=== PATIENT | female | born 1970 | race Caucasian/White ===

== ENCOUNTER 2025-02-02 08:48 | Emergency (ER) | payer OTHER, SELFPAY ==
--- NOTE | 2025-02-02 08:49 | ED_ITS ---
HPI - Abdominal Pain General Chief Complaint: Abdominal Pain Stated Complaint: ABD PAIN Time Seen by Provider: 02/02/25 09:01 Source: patient, RN notes reviewed and old records reviewed Mode of arrival: ambulatory Limitations: no limitations History of Present Illness HPI narrative: 55-year-old female presents to the [facility] with complaints of right lower quadrant pain that started Tuesday, yesterday. Reports diarrhea and nausea. Denies any urinary symptoms. denies vomiting. Denies urinary symptoms. Onset (ago): day(s) (1) Related Data Home Medications ?Medication ?Instructions ?Recorded ?Confirmed ?Last Taken ?Type No Home Medications 02/02/25 02/02/25 Unknown History Allergies Allergy/AdvReac Type Severity Reaction Status Date / Time Penicillins Allergy Severe THROAT Verified 02/02/25 09:00 SWELLING, RASH hydrocodone Allergy Unknown SEVERE Verified 02/02/25 09:00 ITCHING Review of Systems Review of Systems: All systems reviewed & are unremarkable except as noted in HPI and below Constitutional: Constitutional: Reports no additional constitutional complaints ENT: Reports system reviewed and no additional complaints, except as documented Cardiovascular: Cardiovascular: Reports no additional cardiovascular complaints, Denies chest pain and Denies dyspnea Respiratory: Respiratory: Reports no additional respiratory complaints, Denies chest congestion, Denies cough and Denies dyspnea Gastrointestinal: Gastrointestinal: Reports as per HPI and Reports abdominal pain ( Right lower quadrant) Musculoskeletal: Musculoskeletal: Reports no additional musculoskeletal complaints Integumentary/Breasts: Skin/Breast: Reports system reviewed and no additional complaints, except as docu PMFSH Past Medical History Medical History Essential hypertension Surgical History Surgical History History of laparoscopic cholecystectomy H/O: hysterectomy Social History Social History Smoking status: Never smoker Second hand tobacco smoke exposure: No Alcohol intake: never Comments At the time of my signature, I reviewed and agree with the nursing past medical, surgical, social, and family history. There is no relevant family history pertinent to the patient complaint. Exam Const: General: cooperative, healthy appearing, comfortable, no acute distress, well developed, alert and well nourished Nutritional Appearance: well nourished Orientation/consciousness: patient oriented x3 Limitations: no limitations HENMT: Head: normal to inspection Eyes: General: appearance normal, both eyes and all related structures Alignment and Position: alignment normal Neck: Neck: normal visual inspection, full ROM, no lymphadenopathy and no meningeal signs Chest: Chest palpation & inspection: normal inspection of the chest Resp: Effort & Inspection: normal respiratory effort and able to speak in complete sentences Auscultation: clear to auscultation bilaterally, no crackles, no rales, no rhonchi and no wheezes Cardio: Rate: regular rate GI: GI Palp: Yes abdominal tenderness ( suprapubic, right lower quadrant), Yes Tenderness to palpation present (GI) and No Guarding due to palpation present (GI) : General: Yes no CVA tenderness Skin: General skin exam: normal color and no rashes or lesions noted Neuro: General: patient oriented x3, gait normal, moves all extremities and no meningeal signs Cognition (Neuro): normal cognition Speech: normal speech Gait exam (Neuro): Normal gait present Extrem: General: normal to inspection, full ROM, capillary refill normal and normal gait Psych: Appearance: grossly normal and well kempt Mental Status: mental status grossly normal Speech and movement: Normal speech and movement present and Clear speech present Affect: normal affect Attitude: cooperative Course Course Level of Care: Express Care Visit Vital Signs Vital signs: Vital Signs Temperature 97.7 F 02/02/25 09:02 Pulse Rate 95 02/02/25 09:02 Respiratory Rate 16 02/02/25 09:02 Blood Pressure 142/95 H 02/02/25 09:02 Pulse Oximetry 98 02/02/25 09:02 Temperature 97.7 F 02/02/25 09:02 Pulse Rate 95 02/02/25 09:02 Respiratory Rate 16 02/02/25 09:02 Blood Pressure 142/95 H 02/02/25 09:02 Pulse Oximetry 98 02/02/25 09:02 Reviewed Transfer Transfered to: [place] Transportation: Other ( POV) Transfer rationale: patient with right lower quadrant pain intermittent but increasing since yesterday. Sending to rule out appendicitis Accepting physician: Dr Oneal MDM - Abdominal Pain MDM Narrative Medical decision making narrative: patient sitting in exam room. Patient is nontoxic, vitals are stable except blood pressure mildly Ayaka elevated. Patient presents with right lower quadrant pain that has been increasing since yesterday. sending to the ER to rule out appy transfer instructions reviewed with patient go directly to the ER. Do not eat or drink until cleared by ER provider All questions have been answered, and the patient deny any further questions. Some parts of this dictation were generated by voice recognition software and may contain typographical and/or grammatical inaccuracies. Differential Diagnosis Differential diagnosis: Likely abdominal pain, acute appendicitis, calculus of kidney, constipation, diverticulitis, gastroenteritis, pancreatitis and small bowel obstruction Critical Care Time Critical Care Time Critical Care Time: No Discharge Plan Discharge Clinical Impression: Right lower quadrant abdominal pain Patient Disposition: Acute Care Hospital Condition: Stable Patient Language: Hebrew Prescriptions: No Action No Home Medications Follow-up/Referrals: Addy,Trey Mckeon MD [Primary Care Provider] -
[2025-02-02 09:02] VITALS: BP 142/95; PULSE 95; RESP 16; TEMP 36.5; O2SAT 98
== END 2025-02-02 09:28 | disposition short-term general hospital (02) ==
PROVIDERS: Emergency Provider Nurse Practitioner; PCP Internal Medicine
DX: R10.31 Right lower quadrant pain (principal); I10 Essential (primary) hypertension
CPT/HCPCS: 99212; G0463

== ENCOUNTER 2025-02-02 09:45 | Inpatient (IN) | payer OTHER, SELFPAY ==
--- NOTE | ~2025-02-02 | XR_ITS ---
EXAMINATION: XR chest 1V portable 02/02/2025 10:16 INDICATION: Right lower quadrant pain PROCEDURE: AP portable chest COMPARISON: 07/21/2016 FINDINGS: The lungs are clear. The cardiomediastinal silhouette is within normal limits. There are no pleural effusions. There is no pneumothorax suspected. IMPRESSION: 1: NO ACUTE CARDIOPULMONARY DISEASE. Reviewed, dictated and finalized at location A.
--- NOTE | ~2025-02-02 | CT_ITS ---
EXAMINATION: CT abdomen pelvis w con DATE: 02/02/2025 10:31 INDICATION: Right lower quadrant pain. TECHNIQUE: Computed tomography (CT) of the abdomen and pelvis was performed with 100 cc Omnipaque 350 intravenous contrast. The dose-length product was 603.70 mGy-cm. Automated exposure control and iter ative reconstruction technique were employed. COMPARISON: CT dated 06/20/2017. FINDINGS: Heart size normal. No significant pleural or pericardial effusion. There is dependent atele ctasis. Calcified granuloma right lower lobe. Fatty infiltration of the liver. Status post cholecyste ctomy. The spleen, pancreas, adrenal glands and kidneys are unremarkable. No significant vascular abn ormality. No lymphadenopathy. There is segmental thickening of the mid and distal small bowel extendi ng to the terminal ileum, suspicious for inflammatory process (i.e. Crohn's disease versus infection) . No obstruction. No lymphadenopathy. Trace free fluid in the pelvis. No free air. No acute osseous a bnormality. IMPRESSION: 1. Thickened ileum, suspicious for inflammatory bowel disease. Consider Crohn's disease and infection . Reviewed, dictated and finalized at location A. IMPRESSION: 1. Thickened ileum, suspicious for inflammatory bowel disease. Consider Crohn's disease and infection.
--- OUTSIDE RECORDS SUMMARY | 2025-02-02 09:47 | XMS_ITS | Clinical Summary ---
Author Organization [facility] [address] Address [address] [place] [address] Care Team Providers Care Atg Java Developer Name Role Phone No, Physician Primary Care Provider [phone] Allergies Active Allergy Reactions Criticality Noted Date Comments Hydrocodone-Acetaminophen Rash Medium 04/25/2019 Penicillins Anaphylaxis High 02/01/2019 Medications dilTIAZem CD/XR/XT (CARDIZEM CD,DILACOR XR) 120 mg 24 hr capsule Take 1 capsule (120 mg total) by mouth daily 30 capsule 11 04/25/2019 Active nitroglycerin (NITROSTAT) 0.[address] 1 tablet (0.4 mg total) under the tongue every 5 (five) minutes as needed for chest pain 25 tablet 11 06/18/2020 Active Active Problems No known active problems Surgical History Surgery Date Site/Laterality Comments HYSTERECTOMY CHOLECYSTECTOMY Medical History Medical History Date Comments Hypertension Gallstones Social History Tobacco Use Types Packs/Day Years Used Date Smoking Tobacco: Never Smokeless Tobacco: Never Alcohol Use Standard Drinks/Week Comments Never 0 (1 standard drink = 0.6 oz pur e alcohol) AUDIT-C Answer Date Recorded Frequency of Alcohol Consumption Never 04/25/2019 Average Number of Drinks Not on file 019 Frequency of Binge Drinking Not on file 04/06 Personal Safety Answer Date Recorded Getting School Help Needed Not on file 11/18 Comments Unknown Sex and Gender Information Value Date Recorded Sex Assigned at Not on file 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 Gender Identity Not on file Sexual Orientation Not on file Obstetrics History Last Filed Vital Signs Vital Sign Reading Time Taken Comments Blood Pressure 130/76 06/18/2020 1:03 PM CDT Pulse 77 06/18/2020 1:03 PM CDT Temperature - - Respiratory Rate - - Oxygen Saturation 99% 06/18/2020 1:03 PM CDT Inhaled Oxygen Concentration - - Weight 65.3 kg (144 lb) 06/18/2020 1:03 PM CDT Height 165.1 cm (5' 5) 06/18/2020 1:03 PM CDT Body Mass Index 23.96 06/18/2020 1:03 PM CDT Plan of Treatment Not on file Insurance Care Teams Atg Java Developer Relationship Specialty Start Date End Date No, Physician PCP - General 06/25/20
--- OUTSIDE RECORDS SUMMARY | 2025-02-02 09:47 | XMS_ITS | Referral Summary ---
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
[2025-02-02 10:01] VITALS: BP 156/102; PULSE 93; RESP 16; TEMP 36.7; O2SAT 100
--- NOTE | 2025-02-02 10:07 | ECG_ITS ---
Test Date: 2025-02-02 10:46:14 Measurements Intervals [place] Rate: 79 P: 44 WY: 155 QRS: 36 QRSD: 90 T: 28 QT: 398 QTc: 456 Interpretive Statements SINUS RHYTHM BASELINE ARTIFACT- I, II, III, AVR, AVL, V4-V5 NORMAL ECG No previous ECG available for comparison Electronically Signed On 02-03-2025 06:48:35 CDT by Renzo Cardona D.O.
--- NOTE | 2025-02-02 10:10 | ED_ITS ---
HPI - General Adult General Chief complaint: Abdominal Pain Stated complaint: Abd pain Time Seen by Provider: 02/02/25 10:03 History of Present Illness HPI narrative: This is a 55 female presenting ED with chief complaint of abdominal pain. Symptoms started yesterday morning. Pain was originally the middle/left side of her abdomen but is now migrated to the right quadrant. Associated with nausea without vomiting. She has had diarrhea during this time. No fevers chest pain difficulty breathing or urinary symptoms. She still has an appendix. Ovaries and uterus have been removed. Related Data Home Medications ?Medication ?Instructions ?Recorded ?Confirmed ?Last Taken ?Type No Home Medications 02/02/25 02/02/25 Unknown History Allergies Allergy/AdvReac Type Severity Reaction Status Date / Time Penicillins Allergy Severe THROAT Verified 02/02/25 09:46 SWELLING, RASH hydrocodone Allergy Unknown SEVERE Verified 02/02/25 09:46 ITCHING PMFSH Past Medical History Medical History Essential hypertension Surgical History Surgical History History of laparoscopic cholecystectomy H/O: hysterectomy Social History Social History Smoking status: Never smoker Second hand tobacco smoke exposure: No Alcohol intake: never Exam 2 Narrative: APPEARANCE: No apparent distress. Head: atraumatic. EYES: EOMI, NOSE: Atraumatic NECK: Trachea midline RESPIRATORY: No increased rate of breathing, CTAB CARDIOVASCULAR: RRR, ABDOMINAL: Tenderness to the right lower quadrant with voluntary guarding MUSCULOSKELETAl: No obvious deformities NEURO: Alert. Moving 4/4 extremities SKIN:: Warm, dry. Normal color PSYCHIATRIC: Normal affect Course Vital Signs Vital signs: Vital Signs Temperature 98.1 F 02/02/25 10:01 Pulse Rate 93 02/02/25 10:01 Respiratory Rate 16 02/02/25 10:01 Blood Pressure 156/102 H 02/02/25 10:01 Pulse Oximetry 100 02/02/25 10:01 Oxygen Delivery Room Air 02/02/25 10:01 Temperature 98.1 F 02/02/25 10:01 Pulse Rate 85 02/02/25 11:30 Respiratory Rate 16 02/02/25 11:30 Blood Pressure 152/98 H 02/02/25 11:30 Pulse Oximetry 99 02/02/25 11:30 Oxygen Delivery Room Air 02/02/25 10:01 Medical Decision Making [facility] Narrative Medical decision making narrative: -Course: 55-year-old female with no medical history presenting for right lower quadrant pain. CT abdomen pelvis showed inflammation of the terminal ileum and proximal colon which may be inflammatory or infectious in nature.. Presentation was consistent with appendicitis so I did speak with the radiologist to confirm there is no inflammation appendix. Patient does not have an elevated white count,fevers or bloody diarrhea so will hold off on antibiotics at this time. Laboratory studies within limits. Urine with 6-10 white blood cells of +1 leuk esterase. She has no urinary symptoms. Will await culture results. Despite fluid resuscitation and pain medication patient is still very uncomfortable. I am uncomfortable sending this patient home. She will be admitted the hospital for GI evaluation and pain control. -DDX includes but is not limited to: Appendicitis, inflammatory versus infectious colitis Vital Signs Vital Signs: Vital Signs Temperature 98.1 F 02/02/25 10:01 Pulse Rate 93 02/02/25 10:01 Respiratory Rate 16 02/02/25 10:01 Blood Pressure 156/102 H 02/02/25 10:01 Pulse Oximetry 100 02/02/25 10:01 Oxygen Delivery Room Air 02/02/25 10:01 Temperature 98.1 F 02/02/25 10:01 Pulse Rate 85 02/02/25 11:30 Respiratory Rate 16 02/02/25 11:30 Blood Pressure 152/98 H 02/02/25 11:30 Pulse Oximetry 99 02/02/25 11:30 Oxygen Delivery Room Air 02/02/25 10:01 Lab Data 02/02/25 10:14 02/02/25 10:14 Labs: Lab Results 02/02/25 02/02/25 Range/Units 10:14 10:59 WBC 5.8 (4.5-10.0) K/mm3 RBC 4.83 (4.2-5.4) M/mm3 Hgb 15.1 H (12.0-15.0) g/dL Hct 44.7 (37.0-47.0) % MCV 92.5 (80-100) fl MCH 31.3 (26-34) pg MCHC 33.8 (32-36) g/dl RDW 12.3 (11.5-14.5) % Plt Count 254 (150-375) k/mm3 MPV 9.7 (7.4-10.4) fl Immature Gran % (Auto) 0.2 (0-0.5) % Neut % (Auto) 68.1 (45.5-73.1) % Lymph % (Auto) 20.0 (18.3-44.2) % [place] % (Auto) 10.7 H (2.6-8.5) % Eos % (Auto) 0.7 (0-4.4) % Baso % (Auto) 0.3 (0.2-1.2) % Lymph # (Auto) 1.16 (0.9-3.2) K/mm3 [place] # (Auto) 0.6 (0.1-0.6) K/mm3 Eos # (Auto) 0.0 (0-0.3) K/mm3 Baso # (Auto) 0.0 (0.0-0.1) K/mm3 Abs Immat Gran (auto) 0.01 (0.00-0.031) K/mm3 Absolute Neuts (auto) 3.9 (1.3-6.7) K/mm3 Absolute Nucleated RBC 0.000 (0.0-0.012) K/mm3 Nucleated RBC % 0.0 (0.0-0.2) % Sodium 140 (137-145) mmol/L Potassium 3.7 (3.4-5.0) mmol/L Chloride 105 (98-107) mmol/L Carbon Dioxide 23 (22-30) mmol/L Anion Gap 12 (4-12) mmol/L BUN 12 (7-17) mg/dL Creatinine 0.71 (0.7-1.0) mg/dL Estim Creat Clear Calc 78 ml/min Estimated GFR > 60 (59 - ) Glucose 115 H (65-110) mg/dL Lactic Acid 1.2 (0.7-2.0) mmol/L Calcium 9.7 (8.4-10.2) mg/dL Total Bilirubin 0.9 (0.2-1.3) mg/dL AST 45 H (14-36) U/L ALT 39 H (6-35) U/L Alkaline Phosphatase 77 (38-126) U/L Total Protein 9.0 H (6.3-8.2) g/dL Albumin 5.1 (3.5-5.1) g/dL Lipase 70 (23-300) U/L Urine Color Dark yellow (Yellow) Urine Appearance Clear (Clear) Urine pH 5.5 (5.0-9.0) Ur Specific [place] 1.028 (1.001-1.035) Urine Protein 1+ H (Negative) mg/dL Urine Glucose (UA) Negative (Negative) mg/dL Urine Ketones Trace H (Negative) mg/dL Ur Blood (Man) 2+ H (Negative) Urine Nitrate Negative (Negative) Urine Bilirubin Negative (Negative) Urine Urobilinogen 1.0 (<2.0) mg/dL Add Ur Microanalysis Reviewed Leukocyte Esterase Rfl 1+ H (Negative) SIVAN/UL Urine RBC 11-20 H (0-2) /hpf Urine WBC 6-10 H (0-3) /hpf Ur Squamous Epith Cells Few (Few) /hpf Urine Bacteria None seen /hpf Urine Casts 0-2 Urine Mucus Present /lpf Discharge Plan Discharge Clinical Impression: Colitis Patient Disposition: Still a Patient Condition: Stable Instructions: Antibiotic Form Patient Language: [place] Prescriptions: No Action No Home Medications Follow-up/Referrals: Addy,Trey Mckeon MD [Primary Care Provider] -
--- OUTSIDE RECORDS SUMMARY | 2025-02-02 10:11 | XMS_ITS | Clinical Summary ---
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
--- OUTSIDE RECORDS SUMMARY | 2025-02-02 10:11 | XMS_ITS | Referral Summary ---
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
[2025-02-02 10:22] LABS: Basophils Percent Auto 0.3 % (0.2-1.2); Eosinophils Percent Auto 0.7 % (0-4.4); Hematocrit 44.7 % (37.0-47.0); Hemoglobin 15.1 g/dL (12.0-15.0); Immature Granulocyte Absolute 0.01 K/mm3 (0.00-0.031); Immature Granulocyte Percent A 0.2 % (0-0.5); Lymphocytes Absolute Auto 1.16 K/mm3 (0.9-3.2); Mean Corpuscular HGB Conc 33.8 g/dl (32-36); Mean Corpuscular Hemoglobin 31.3 pg (26-34); Mean Corpuscular Volume 92.5 fl (80-100); Mean Platelet Volume 9.7 fl (7.4-10.4); Monocytes Absolute Auto 0.6 K/mm3 (0.1-0.6); Monocytes Percent Auto 10.7 % (2.6-8.5); Neutrophils Absolute Auto 3.9 K/mm3 (1.3-6.7); Neutrophils Percent Auto 68.1 % (45.5-73.1); Platelet Count Result 254 k/mm3 (150-375); Red Blood Count 4.83 M/mm3 (4.2-5.4); Red Cell Distribution Width 12.3 % (11.5-14.5); White Blood Count 5.8 K/mm3 (4.5-10.0)
[2025-02-02] MEDS: HYDROmorphone HCL INJ (*CRX) 2 MG/ML VIAL 0.5 MG IV PUSH ×3 (10:28→21:09)
[2025-02-02 10:32] LABS: Alanine Aminotransferase 39 U/L (6-35); Albumin Level 5.1 g/dL (3.5-5.1); Alkaline Phosphatase 77 U/L (38-126); Anion Gap 12 mmol/L (4-12); Aspartate Amino Transferase 45 U/L (14-36); Bilirubin,Total 0.9 mg/dL (0.2-1.3); Blood Urea Nitrogen 12 mg/dL (7-17); Calcium 9.7 mg/dL (8.4-10.2); Carbon Dioxide 23 mmol/L (22-30); Chloride 105 mmol/L (98-107); Estimated CRCL calculation 78 ml/min; Estimated Glomerular Filt Rate > 60; Glucose 115 mg/dL (65-110); Lipase 70 U/L (23-300); Potassium 3.7 mmol/L (3.4-5.0); Sodium 140 mmol/L (137-145)
[2025-02-02] MEDS: SODIUM CHLORIDE 0.9% IV 1,000 ML 999 ML IV CONT ×2 (10:41)
[2025-02-02] MEDS: ONDANSETRON INJ 4 MG/2 ML VIAL IV PUSH ×2 (10:41→20:13)
[2025-02-02] MEDS: SODIUM CHLORIDE 0.9% IV 400 ML 999 ML IV CONT (10:41)
[2025-02-02 10:45] VITALS: BP 159/91; PULSE 80; RESP 16; O2SAT 96
[2025-02-02 10:55] LABS: Add Urine Microscopic? YES; Appearance Urine Clear (Clear); Bacteria Urine None Seen /hpf; Bilirubin Urine Negative (Negative); Blood Urine 2+ (Negative); Color Urine Dark Yellow (Yellow); Glucose Urine UA Negative (Negative); Ketones Urine Trace mg/dL (Negative); Leukocyte Esterase Ur 1+ LEU/UL (Negative); Mucus Urine Present /lpf; Need Manual Microscopic Reviewed; Nitrate Urine Negative (Negative); Non Pathogenic Casts 0-2; Protein Urine 1+ mg/dL (Negative); Specific Grav Ur 1.028 (1.001-1.035); Squamous Epithelial Cell Urine Few /hpf (Few); pH Urine 5.5 (5.0-9.0)
[2025-02-02 11:17] LABS: Lactic Acid Reflex 1.2 mmol/L (0.7-2.0)
[2025-02-02 11:30] VITALS: BP 152/98; PULSE 85; RESP 16; O2SAT 99
[2025-02-02] MEDS: KETOROLAC 15 MG/ML VIAL (*BKC) IV PUSH (12:18)
[2025-02-02] MEDS: HYDROmorphone HCL INJ (*CRX) 2 MG/ML VIAL 1 MG IV PUSH (12:18)
--- NOTE | 2025-02-02 12:45 | P.HP_ITS ---
H&P: HPI History of Present Illness Date/Time: 02/02/25 18:00 Chief Complaint: Abdominal pain, nausea, diarrhea. Narrative: This is a 55-year-old female with hypertension no longer on medication and history of cholecystectomy and hysterectomy who presented to the emergency department via private vehicle with complaints of abdominal pain, nausea, and diarrhea. Yesterday morning she developed discomfort in the left side of her abdomen which has now migrated and settled into the right to mid lower quadrant. She does describes a constant, dull aching discomfort with periods of ?intense contractions.? It does not radiate and she has not noticed any significant alleviating factors. It seems to be worse with movement and palpation. Associated symptoms include chills, nausea, and watery, light brown diarrhea. She has never had similar symptoms and denies sick contacts. No recent travel or antibiotic use. Weight has been stable. She has not noticed any blood or mucus in the stool. No fever or vomiting. No known family history of inflammatory bowel disease although she is adopted. In the ED: Blood pressure was 142/95 on arrival; the remainder of her vital signs were stable. Labs were significant for WBC count of 5.8, hemoglobin 15.1, glucose 115, AST 49, ALT 39. Abdomen/pelvis CT showed thickened ileum suspicious for inflammatory bowel disease versus infection. She was given 3 L of normal saline, ketorolac, hydromorphone, and ondansetron. She is being admitted in this setting for further treatment and GI consultation. Review of Systems Review of Systems: 12 systems were reviewed and are negativ e except for as per HPI. [facility] Past Medical History Medical History (Updated 02/02/25 @ 22:03 by Mitzi Ayala PA-C) Essential hypertension no longer on antihypertensives after weight loss Surgical History Surgical History History of hysterectomy History of laparoscopic cholecystectomy Social History Social History Social History: Surrogate medical decision maker: Jimmy Barriga, spouse. Code status: Full code. Smoking status: Never smoker Second hand tobacco smoke exposure: No Alcohol intake: never Substance use: never Substance use type: does not use Do You Feel Safe in your Home?: Yes Lack of Transportation: No Lack of Food: Never True Current Housing: I Have Housing Concerned About Future Housing: No Difficulty Paying Gas/Electric Bills: No Difficulty Paying for Meds: No Currently Unemployed: No Education: High School Diploma/GED Difficulty w/ Childcare or Family Care: No Spiritual care concerns: No Meds Home Medications and Allergies Home Medications ?Medication ?Instructions ?Recorded ?Confirmed ?Type No Home Medications 02/02/25 02/02/25 History Allergies Allergy/AdvReac Type Severity Reaction Status Date / Time Penicillins Allergy Severe THROAT Verified 02/02/25 09:46 SWELLING, RASH hydrocodone Allergy Unknown SEVERE Verified 02/02/25 09:46 ITCHING Vital Signs Vital Signs - 24 hr 02/02/25 10:01 02/02/25 10:45 02/02/25 11:30 Temperature 98.1 F Pulse Rate 93 80 85 Respiratory Rate 16 16 16 Blood Pressure 156/102 H 159/91 H 152/98 H Pulse Oximetry 100 96 99 Oxygen Delivery Room Air Exam Narrative: General: Moderately ill-appearing female supine in bed in pain. Weight: 77.7 kg. BMI: 29.4. HEENT: PERRL, EOMI. Sclera anicteric. Tacky mucous membranes. Neck: Supple. Respiratory: Lungs are clear to auscultation bilaterally. Cardiovascular: Regular rate and rhythm with S1-S2. Gastrointestinal: Abdomen is soft and nondistended with positive bowel sounds. She is tender to palpation throughout the right side of the abdomen. No guarding or rebound tenderness. Skin: Warm and dry. Extremities: No cyanosis, clubbing, or edema. Radial and pedal pulses intact. Neurological: Alert. Cranial nerves 2-12 are grossly intact. No gross focal deficits to casual conversation. Psychiatric: Pleasant and cooperative with normal mood and affect. Judgment and insight intact. H&P: Results Labs Labs: Short CBC 02/02/25 Range/Units 10:14 WBC 5.8 (4.5-10.0) K/mm3 Hgb 15.1 H (12.0-15.0) g/dL Hct 44.7 (37.0-47.0) % Plt Count 254 (150-375) k/mm3 BMP 02/02/25 10:14 Sodium 140 Potassium 3.7 Chloride 105 Carbon Dioxide 23 BUN 12 Creatinine 0.71 Glucose 115 H Calcium 9.7 Liver Function 02/02/25 Range/Units 10:14 Total Bilirubin 0.9 (0.2-1.3) mg/dL AST 45 H (14-36) U/L ALT 39 H (6-35) U/L Alkaline Phosphatase 77 (38-126) U/L Albumin 5.1 (3.5-5.1) g/dL Urine 02/02/25 Range/Units 10:14 Urine Color Dark yellow (Yellow) Urine Appearance Clear (Clear) Urine pH 5.5 (5.0-9.0) Ur Specific [place] 1.028 (1.001-1.035) Urine Protein 1+ H (Negative) mg/dL Urine Glucose (UA) Negative (Negative) mg/dL Imaging Chest X-Ray 02/02/25 10:32 IMPRESSION: 1: NO ACUTE CARDIOPULMONARY DISEASE. Abdomen/Pelvis CT 02/02/25 10:37 IMPRESSION: 1. Thickened ileum, suspicious for inflammatory bowel disease. Consider Crohn's disease and infection. 2. The appendix is normal caliber. No secondary findings to suggest appendicitis. Assessment and Plan Assessment and plan (1) Enteritis: Code(s): K52.9 - Noninfective gastroenteritis and colitis, unspecified Status: Acute (2) Dehydration: Code(s): E86.0 - Dehydration Status: Acute (3) Elevated LFTs: Code(s): R79.89 - Other specified abnormal findings of blood chemistry Status: Acute (4) Essential hypertension: Code(s): I10 - Essential (primary) hypertension Status: Acute Plan The patient presented to the emergency department with complaints of right lower quadrant pain, nausea, and diarrhea since yesterday morning as detailed in HPI. Labs, imaging, EKG, and all reports were personally reviewed. Abdomen/pelvis CT shows segmental thickening of the mid and distal small bowel extending to the terminal ileum suspicious for inflammatory bowel disease versus possible infection. Continue empiric antibiotics pending GI consult. She has been adequately hydrated. AST and ALT are a bit elevated and will be monitored. She no longer take antihypertensives however her blood pressures have been running high, in the 140-150/80-90 range. Continue to monitor closely and consider reinitiating medication. Findings and treatment plan were discussed with the patient. Questions were solicited and answered to satisfaction. The patient's medical management will be taken over by the hospitalist team in a.m. Quality VTE Prophylaxis VTE prophylaxis: mechanical ordered If No VTE Prophylaxis Answer both mechanical and pharmacologic: Reason no pharmacologic proph: medical contraindication (may need procedure) The patient has been admitted under observation status. Hospitalist [facility] Advance Care Plan I have confirmed that the patient's Advanced Care Plan is present, code status is documented, or surrogate decision maker is listed in patient medical record.: Yes Medication Reconciliation I have utilized all available resources to obtain, update and review the patients current medications (includes all prescriptions, OTC, herbals, cannabis, and nutritional supplements).: Yes
[2025-02-02] MEDS: LACTATED RINGERS 1,000 ML 100 ML IV CONT ×2 (12:50→23:11)
[2025-02-02 15:08] VITALS: BMI 29.4
[2025-02-02 15:20] VITALS: BP 114/76; PULSE 65; RESP 14; TEMP 36.3; O2SAT 97
--- NOTE | 2025-02-02 16:47 | ADMGEN ---
This patient, Gayle Barriga, was admitted to [facility] Surg Room 303-01. Patient/family oriented to hospital policies and general routines including ID bracelet, bed and alarms, visiting hours, pain management, procedures, bathroom and other care routines, personal items, smoking policy, room service/diet, and visiting hours. Information on how to activate the Rapid Response Team has been discussed. Patient/Family are encouraged to report perceived risks to care and to ask questions if they do not understand what they are told or what they should do.
[2025-02-02 20:26] VITALS: BP 115/68; PULSE 75; RESP 20; TEMP 36.5; O2SAT 98
[2025-02-02 21:00] VITALS: O2SAT 98
[2025-02-02] MEDS: metroNIDAZOLE 500 MG/ISO 100ML 500 MG/100 ML BAG 100 MG IVPB (23:12)
[2025-02-03] MEDS: HYDROmorphone HCL INJ (*CRX) 2 MG/ML VIAL 0.5 MG IV PUSH ×4 (01:27→21:13)
[2025-02-03] MEDS: metroNIDAZOLE 500 MG/ISO 100ML 500 MG/100 ML BAG 100 MG IVPB ×3 (05:08→21:15)
[2025-02-03] MEDS: ONDANSETRON INJ 4 MG/2 ML VIAL IV PUSH (05:33)
[2025-02-03 05:40] VITALS: BP 132/67; PULSE 73; RESP 20; TEMP 36.2; O2SAT 95
[2025-02-03 06:11] LABS: Hematocrit 38.7 % (37.0-47.0); Hemoglobin 12.8 g/dL (12.0-15.0); Mean Corpuscular HGB Conc 33.1 g/dl (32-36); Mean Corpuscular Hemoglobin 31.1 pg (26-34); Mean Corpuscular Volume 93.9 fl (80-100); Mean Platelet Volume 9.7 fl (7.4-10.4); Platelet Count Result 202 k/mm3 (150-375); Red Blood Count 4.12 M/mm3 (4.2-5.4); Red Cell Distribution Width 12.2 % (11.5-14.5)
[2025-02-03 06:23] LABS: Alanine Aminotransferase 100 U/L (6-35); Albumin Level 3.9 g/dL (3.5-5.1); Alkaline Phosphatase 81 U/L (38-126); Anion Gap 5 mmol/L (4-12); Aspartate Amino Transferase 128 U/L (14-36); Bilirubin,Total 0.7 mg/dL (0.2-1.3); Blood Urea Nitrogen 7 mg/dL (7-17); Calcium 8.9 mg/dL (8.4-10.2); Carbon Dioxide 29 mmol/L (22-30); Chloride 105 mmol/L (98-107); Estimated CRCL calculation 80 ml/min; Estimated Glomerular Filt Rate > 60; Glucose 97 mg/dL (65-110); Magnesium 1.9 mg/dL (1.6-2.3); Potassium 4.2 mmol/L (3.4-5.0); Sodium 139 mmol/L (137-145)
--- NOTE | 2025-02-03 09:17 | P.PNIM_ITS ---
Progress Note: A&P Assessment and Plan (1) Enteritis: Code(s): K52.9 - Noninfective gastroenteritis and colitis, unspecified Status: Acute (2) Dehydration: Code(s): E86.0 - Dehydration Status: Acute (3) Elevated LFTs: Code(s): R79.89 - Other specified abnormal findings of blood chemistry Status: Acute (4) Essential hypertension: Code(s): I10 - Essential (primary) hypertension Status: Acute Plan Enteritis CT AP showed thickened ileum ?Crohns Patient still having diarrhea and abd pain Continue Abx GI consulted for Crohn's eval Hypertension titrate home meds with clinical course DVT prophylaxis on Sq Lovenox Subjective Date/time seen: 02/03/25 09:17 Interval history: Comfortable at bedside Review of Systems Review of Systems: 12 systems were reviewed and are negativ e except for as per HPI. Exam Narrative: General: Moderately ill-appearing female supine in bed in pain. Weight: 77.7 kg. BMI: 29.4. HEENT: PERRL, EOMI. Sclera anicteric. Tacky mucous membranes. Neck: Supple. Respiratory: Lungs are clear to auscultation bilaterally. Cardiovascular: Regular rate and rhythm with S1-S2. Gastrointestinal: Abdomen is soft and nondistended with positive bowel sounds. She is tender to palpation throughout the right side of the abdomen. No guarding or rebound tenderness. Skin: Warm and dry. Extremities: No cyanosis, clubbing, or edema. Radial and pedal pulses intact. Neurological: Alert. Cranial nerves 2-12 are grossly intact. No gross focal deficits to casual conversation. Psychiatric: Pleasant and cooperative with normal mood and affect. Judgment and insight intact. Objective Data Vital Signs Vital Signs: Vital Signs - 24 hr 02/02/25 10:01 02/02/25 10:45 02/02/25 11:30 Temperature 98.1 F Pulse Rate 93 80 85 Respiratory Rate 16 16 16 Blood Pressure 156/102 H 159/91 H 152/98 H Pulse Oximetry 100 96 99 Oxygen Delivery Room Air 02/02/25 15:20 02/02/25 20:26 02/02/25 21:00 Temperature 97.3 F L 97.7 F Pulse Rate 65 75 Respiratory Rate 14 20 Blood Pressure 114/76 115/68 Pulse Oximetry 97 98 98 Oxygen Delivery Room Air 02/03/25 05:40 Temperature 97.2 F L Pulse Rate 73 Respiratory Rate 20 Blood Pressure 132/67 Pulse Oximetry 95 Oxygen Delivery Intake/Output Intake/Output: Intake & Output 01/31/25 02/01/25 02/02/25 02/03/25 23:59 23:59 23:59 23:59 Intake Total 2450 100 Balance 2450 100 Meds/Results Medications: Active Medications Generic Name Dose Route Start Last Admin Trade Name Freq PRN Reason Stop Dose Admin Acetaminophen 650 mg 02/02/25 22:07 Acetaminophen 325 Mg Tablet PO Q6H PRN Mild Pain (1-3) or Fever Hydromorphone HCl 0.5 mg 02/02/25 12:38 02/03/25 05:32 Hydromorphone Hcl Inj (*Crx) 2 Mg/Ml Vial IV PUSH 0.5 mg Q4H PRN Administration Pain Rated 7-10 Ceftriaxone Sodium 1 gm in 50 mls @ 100 mls/hr 02/02/25 22:00 02/02/25 23:42 Rocephin 1 Gm/Ns 50 Ml IVPB Infused Q24H ANDREAS Infusion Metronidazole 500 mg in 100 mls @ 100 mls/hr 02/02/25 22:00 02/03/25 05:08 Flagyl 500 Mg/Iso Soln 100 Ml IVPB 100 mls/hr Q8H ANDREAS Administration Ondansetron HCl 4 mg 02/02/25 17:58 02/03/25 05:33 Ondansetron Inj 4 Mg/2 Ml Vial IV PUSH 4 mg Q6H PRN Administration Nausea And Vomiting Radiology Results: ITS Impressions Chest X-Ray 02/02/25 10:32 IMPRESSION: 1: NO ACUTE CARDIOPULMONARY DISEASE. Abdomen/Pelvis CT 02/02/25 10:37 IMPRESSION: 1. Thickened ileum, suspicious for inflammatory bowel disease. Consider Crohn's disease and infection. ADDENDUM: 02/02/25 1154 The appendix is normal caliber. No secondary findings to suggest appendicitis. Labs Labs: Laboratory Results - last 24 hr 02/02/25 02/02/25 02/03/25 10:14 10:59 05:25 WBC 5.8 5.0 RBC 4.83 4.12 L Hgb 15.1 H 12.8 Hct 44.7 38.7 MCV 92.5 93.9 MCH 31.3 31.1 MCHC 33.8 33.1 RDW 12.3 12.2 Plt Count 254 202 MPV 9.7 9.7 Immature Gran % (Auto) 0.2 Neut % (Auto) 68.1 Lymph % (Auto) 20.0 [place] % (Auto) 10.7 H Eos % (Auto) 0.7 Baso % (Auto) 0.3 Lymph # (Auto) 1.16 [place] # (Auto) 0.6 Eos # (Auto) 0.0 Baso # (Auto) 0.0 Abs Immat Gran (auto) 0.01 Absolute Neuts (auto) 3.9 Absolute Nucleated RBC 0.000 Nucleated RBC % 0.0 Sodium 140 139 Potassium 3.7 4.2 Chloride 105 105 Carbon Dioxide 23 29 Anion Gap 12 5 BUN 12 7 D Creatinine 0.71 0.69 L Estim Creat Clear Calc 78 80 Estimated GFR > 60 > 60 Glucose 115 H 97 Lactic Acid 1.2 Calcium 9.7 8.9 Magnesium 1.9 Total Bilirubin 0.9 0.7 AST 45 H 128 H ALT 39 H 100 H Alkaline Phosphatase 77 81 Total Protein 9.0 H 7.0 Albumin 5.1 3.9 Lipase 70 Urine Color Dark yellow Urine Appearance Clear Urine pH 5.5 Ur Specific [place] 1.028 Urine Protein 1+ H Urine Glucose (UA) Negative Urine Ketones Trace H Ur Blood (Man) 2+ H Urine Nitrate Negative Urine Bilirubin Negative Urine Urobilinogen 1.0 Add Ur Microanalysis Reviewed Leukocyte Esterase Rfl 1+ H Urine RBC 11-20 H Urine WBC 6-10 H Ur Squamous Epith Cells Few Urine Bacteria None seen Urine Casts 0-2 Urine Mucus Present Quality VTE Prophylaxis VTE prophylaxis: mechanical ordered
[2025-02-03 14:00] VITALS: BP 130/70; PULSE 63; RESP 14; TEMP 36.5; O2SAT 100
--- NOTE | 2025-02-03 17:06 | WPDGICN ---
Assessment and Plan Assessment and plan (1) Enteritis: Code(s): K52.9 - Noninfective gastroenteritis and colitis, unspecified Status: Acute Assessment and Plan: this is rather acute and patient never had chronic GI issues, this most likely is infectious and does not fit Crohn's continue medical treatment with hydration, advance diet as tolerated will assess with colonoscopy in few more weeks after complete recovery to assess if still ileitis supportive care (2) Dehydration: Code(s): E86.0 - Dehydration Status: Acute (3) Colitis: Code(s): K52.9 - Noninfective gastroenteritis and colitis, unspecified Status: Acute (4) Elevated LFTs: Code(s): R79.89 - Other specified abnormal findings of blood chemistry Status: Acute GI Consult Note Consult date/time: 02/03/25 17:06 Reason for consult: diarrhea HPI: Gayle Barriga is a 55 year old female with hypertension and history of cholecystectomy and hysterectomy otherwise healthy here with 3 days of lower abdominal pain, nausea, and diarrhea. She has been having constant, dull aching discomfort with cramping, also had multiple loose stools, no blood. She never had similar episode or chronic gi issues. Had chills, nausea, and watery, light brown diarrhea. No recent travel or antibiotic use. Weight has been stable. She has not noticed any blood or mucus in the stool. No fever or vomiting. ER Labs were significant for WBC count of 5.8, hemoglobin 15.1, glucose 115, AST 49, ALT 39. Abdomen/pelvis CT showed thickened ileum suspicious for inflammatory bowel disease versus infection, started on fluids and abx. Still very nauseous. Never had colonoscopy. Review of Systems Constitutional: Constitutional: Reports chills Eyes: Eyes: Denies blurry vision ENT: Reports Normal hearing present Cardiovascular: Cardiovascular: Denies chest pain Respiratory: Respiratory: Denies cough Gastrointestinal: Gastrointestinal: Reports abdominal pain, Reports diarrhea and Reports nausea Genitourinary: Genitourinary: Denies dysuria Musculoskeletal: Musculoskeletal: Denies neck pain Integumentary/Breasts: Skin/Breast: Denies rash Neurologic: Denies confusion Psychiatric: Psychiatric: Denies behavioral changes [facility] Past Medical History Medical History (Updated 02/03/25 @ 00:01 by Background Daemon) Essential hypertension no longer on antihypertensives after weight loss Surgical History Surgical History History of hysterectomy History of laparoscopic cholecystectomy Social History Social History Social History: Surrogate medical decision maker: Jimmy Barriga, spouse. Code status: Full code. Smoking status: Never smoker Second hand tobacco smoke exposure: No Alcohol intake: never Substance use: never Substance use type: does not use Do You Feel Safe in your Home?: Yes Lack of Transportation: No Lack of Food: Never True Current Housing: I Have Housing Concerned About Future Housing: No Difficulty Paying Gas/Electric Bills: No Difficulty Paying for Meds: No Currently Unemployed: No Education: High School Diploma/GED Difficulty w/ Childcare or Family Care: No Spiritual care concerns: No Meds Home Medications and Allergies Home Medications ?Medication ?Instructions ?Recorded ?Confirmed ?Type No Home Medications 02/02/25 02/02/25 History Allergies Allergy/AdvReac Type Severity Reaction Status Date / Time Penicillins Allergy Severe THROAT Verified 02/02/25 09:46 SWELLING, RASH hydrocodone Allergy Unknown SEVERE Verified 02/02/25 09:46 ITCHING Vital Signs Vital Signs - 24 hr 02/02/25 20:26 02/02/25 21:00 02/03/25 05:40 Temperature 97.7 F 97.2 F L Pulse Rate 75 73 Respiratory Rate 20 20 Blood Pressure 115/68 132/67 Pulse Oximetry 98 98 95 Oxygen Delivery Room Air 02/03/25 14:00 Temperature 97.7 F Pulse Rate 63 Respiratory Rate 14 Blood Pressure 130/70 Pulse Oximetry 100 Oxygen Delivery Exam Const: General: comfortable Other: still uncomfortable because of nausea HENMT: Face/Nose/Sinus: Normal nares present Eyes: General: appearance normal, both eyes and all related structures Neck: Neck: supple Resp: Auscultation: clear to auscultation bilaterally Cardio: Rate: regular rate Rhythm: regular rhythm GI: Inspection: non-distended GI Palp: Yes Soft to palpation and Yes Tenderness to palpation present (GI) (mild ttp lower abdomen, no rebound) Skin: General skin exam: normal color Neuro: Speech: normal speech Motor exam (neuro): 5/5 motor strength present throughout Extrem: General: normal to inspection Psych: Mental Status: mental status grossly normal Results Labs 02/03/25 05:25 02/03/25 05:25 Labs: Short CBC 02/03/25 Range/Units 05:25 WBC 5.0 (4.5-10.0) K/mm3 Hgb 12.8 (12.0-15.0) g/dL Hct 38.7 (37.0-47.0) % Plt Count 202 (150-375) k/mm3 BMP 02/03/25 05:25 Sodium 139 Potassium 4.2 Chloride 105 Carbon Dioxide 29 BUN 7 D Creatinine 0.69 L Glucose 97 Calcium 8.9 Liver Function 02/03/25 Range/Units 05:25 Total Bilirubin 0.7 (0.2-1.3) mg/dL AST 128 H (14-36) U/L ALT 100 H (6-35) U/L Alkaline Phosphatase 81 (38-126) U/L Albumin 3.9 (3.5-5.1) g/dL
[2025-02-03 19:27] VITALS: PULSE 91; RESP 20; O2SAT 96
[2025-02-03] MEDS: ACETAMINOPHEN 325 MG TABLET 650 MG PO (21:16)
[2025-02-03 21:38] VITALS: BP 135/81; PULSE 69; RESP 24; TEMP 36.1; O2SAT 99
[2025-02-04 06:00] VITALS: BP 108/74; PULSE 61; RESP 20; TEMP 36.3; O2SAT 99
[2025-02-04 06:33] LABS: Basophils Percent Auto 0.5 % (0.2-1.2); Eosinophils Absolute Auto 0.1 K/mm3 (0-0.3); Eosinophils Percent Auto 1.8 % (0-4.4); Hematocrit 38.7 % (37.0-47.0); Hemoglobin 12.8 g/dL (12.0-15.0); Immature Granulocyte Absolute 0.01 K/mm3 (0.00-0.031); Immature Granulocyte Percent A 0.3 % (0-0.5); Lymphocytes Absolute Auto 1.39 K/mm3 (0.9-3.2); Mean Corpuscular HGB Conc 33.1 g/dl (32-36); Mean Corpuscular Hemoglobin 30.8 pg (26-34); Mean Corpuscular Volume 93.3 fl (80-100); Mean Platelet Volume 9.8 fl (7.4-10.4); Monocytes Absolute Auto 0.5 K/mm3 (0.1-0.6); Monocytes Percent Auto 11.8 % (2.6-8.5); Neutrophils Percent Auto 50.6 % (45.5-73.1); Platelet Count Result 211 k/mm3 (150-375); Red Blood Count 4.15 M/mm3 (4.2-5.4)
[2025-02-04 06:42] LABS: Alanine Aminotransferase 88 U/L (6-35); Albumin Level 4.1 g/dL (3.5-5.1); Alkaline Phosphatase 94 U/L (38-126); Anion Gap 7 mmol/L (4-12); Aspartate Amino Transferase 74 U/L (14-36); Bilirubin,Total 0.7 mg/dL (0.2-1.3); Blood Urea Nitrogen 7 mg/dL (7-17); Calcium 9.1 mg/dL (8.4-10.2); Carbon Dioxide 29 mmol/L (22-30); Chloride 102 mmol/L (98-107); Estimated CRCL calculation 86 ml/min; Estimated Glomerular Filt Rate > 60; Glucose 80 mg/dL (65-110); Magnesium 2.1 mg/dL (1.6-2.3); Potassium 3.6 mmol/L (3.4-5.0); Sodium 138 mmol/L (137-145)
[2025-02-04] MEDS: metroNIDAZOLE 500 MG/ISO 100ML 500 MG/100 ML BAG 100 MG IVPB (06:43)
--- NOTE | 2025-02-04 13:20 | PM.IMPN ---
Progress Note: A&P Assessment and Plan (1) Enteritis: Code(s): K52.9 - Noninfective gastroenteritis and colitis, unspecified Status: Acute (2) Dehydration: Code(s): E86.0 - Dehydration Status: Acute (3) Elevated LFTs: Code(s): R79.89 - Other specified abnormal findings of blood chemistry Status: Acute (4) Essential hypertension: Code(s): I10 - Essential (primary) hypertension Status: Acute Plan Enteritis CT AP showed enteritis still having diarrhea Stop antibiotics, since GI ruled out Crohn's GI eval noted Stool culture ordered by night provider monitor Hypertension titrate home meds with clinical course DVT prophylaxis on Sq Lovenox Subjective Date/time seen: 02/04/25 13:20 Interval history: Comfortable at bedside Review of Systems Review of Systems: 12 systems were reviewed and are negative except for as per HPI. Exam Narrative: General: Moderately ill-appearing female supine in bed in pain. Weight: 77.7 kg. BMI: 29.4. HEENT: PERRL, EOMI. Sclera anicteric. Tacky mucous membranes. Neck: Supple. Respiratory: Lungs are clear to auscultation bilaterally. Cardiovascular: Regular rate and rhythm with S1-S2. Gastrointestinal: Abdomen is soft and nondistended with positive bowel sounds. She is tender to palpation throughout the right side of the abdomen. No guarding or rebound tenderness. Skin: Warm and dry. Extremities: No cyanosis, clubbing, or edema. Radial and pedal pulses intact. Neurological: Alert. Cranial nerves 2-12 are grossly intact. No gross focal deficits to casual conversation. Psychiatric: Pleasant and cooperative with normal mood and affect. Judgment and insight intact. Objective Data Vital Signs Vital Signs: Vital Signs - 24 hr 02/03/25 14:00 02/03/25 19:27 02/03/25 21:38 Temperature 97.7 F 97 F L Pulse Rate 63 91 69 Respiratory Rate 14 20 24 H Blood Pressure 130/70 135/81 Pulse Oximetry 100 96 99 Oxygen Delivery Room Air Fraction of Inspired Oxygen 21 02/04/25 06:00 Temperature 97.3 F L Pulse Rate 61 Respiratory Rate 20 Blood Pressure 108/74 Pulse Oximetry 99 Oxygen Delivery Fraction of Inspired Oxygen Intake/Output Intake/Output: Intake & Output 02/01/25 02/02/25 02/03/25 02/04/25 23:59 23:59 23:59 23:59 Intake Total 2450 400 740 Balance 2450 400 740 Meds/Results Medications: Active Medications Generic Name Dose Route Start Last Admin Trade Name Freq PRN Reason Stop Dose Admin Acetaminophen 650 mg 02/02/25 22:07 02/03/25 21:16 Acetaminophen 325 Mg Tablet PO 650 mg Q6H PRN Administration Mild Pain (1-3) or Fever Enoxaparin Sodium 40 mg 02/03/25 09:00 02/04/25 09:00 Enoxaparin 40 Mg/0.4 Ml Syringe SUB-Q Not Given DAILY ANDREAS Hydromorphone HCl 0.5 mg 02/02/25 12:38 02/03/25 21:13 Hydromorphone Hcl Inj (*Crx) 2 Mg/Ml Vial IV PUSH 0.5 mg Q4H PRN Administration Pain Rated 7-10 Ondansetron HCl 4 mg 02/02/25 17:58 02/03/25 05:33 Ondansetron Inj 4 Mg/2 Ml Vial IV PUSH 4 mg Q6H PRN Administration Nausea And Vomiting Radiology Results: ITS Impressions Chest X-Ray 02/02/25 10:32 IMPRESSION: 1: NO ACUTE CARDIOPULMONARY DISEASE. Abdomen/Pelvis CT 02/02/25 10:37 IMPRESSION: 1. Thickened ileum, suspicious for inflammatory bowel disease. Consider Crohn's disease and infection. ADDENDUM: 02/02/25 1154 The appendix is normal caliber. No secondary findings to suggest appendicitis. Labs Labs: Laboratory Results - last 24 hr 02/04/25 05:47 WBC 4.0 L RBC 4.15 L Hgb 12.8 Hct 38.7 MCV 93.3 MCH 30.8 MCHC 33.1 RDW 12.0 Plt Count 211 MPV 9.8 Immature Gran % (Auto) 0.3 Neut % (Auto) 50.6 Lymph % (Auto) 35.0 [place] % (Auto) 11.8 H Eos % (Auto) 1.8 Baso % (Auto) 0.5 Lymph # (Auto) 1.39 [place] # (Auto) 0.5 Eos # (Auto) 0.1 Baso # (Auto) 0.0 Abs Immat Gran (auto) 0.01 Absolute Neuts (auto) 2.0 Absolute Nucleated RBC 0.000 Nucleated RBC % 0.0 Sodium 138 Potassium 3.6 Chloride 102 Carbon Dioxide 29 Anion Gap 7 BUN 7 Creatinine 0.63 L Estim Creat Clear Calc 86 Estimated GFR > 60 Glucose 80 Calcium 9.1 Magnesium 2.1 Total Bilirubin 0.7 AST 74 H ALT 88 H Alkaline Phosphatase 94 Total Protein 7.0 Albumin 4.1 Quality VTE Prophylaxis VTE prophylaxis: mechanical ordered
[2025-02-04 14:00] VITALS: BP 147/84; PULSE 64; RESP 20; TEMP 36.2; O2SAT 100
--- NOTE | 2025-02-04 15:47 | WPDGIPROGNO ---
Progress Note: A&P Assessment and Plan (1) Enteritis: Code(s): K52.9 - Noninfective gastroenteritis and colitis, unspecified Status: Acute Assessment and Plan: unlikely chron's givne acute presentation and already doing better probably infectious continue medical support, advance diet and hopefully go home tomorrow will arrange colonoscopy 4-6 weeks as outpatient to evaluate colon and ileum (2) Right lower quadrant abdominal pain: Code(s): R10.31 - Right lower quadrant pain Status: Inactive Assessment and Plan: improving (3) Dehydration: Code(s): E86.0 - Dehydration Status: Acute (4) Nausea: Code(s): R11.0 - Nausea Status: Acute Assessment and Plan: better (5) Elevated LFTs: Code(s): R79.89 - Other specified abnormal findings of blood chemistry Status: Acute Assessment and Plan: probably from acute inflammation ct scan showed fatty liver repeat lft as outpatient and if still elevated then follow-up in office (6) Fatty liver: Code(s): K76.0 - Fatty (change of) liver, not elsewhere classified Status: Acute Subjective Date/time seen: 02/04/25 15:47 Interval history: overall better, still with diarrhea, less abdominal pain Review of Systems Review of Systems: All systems reviewed & are unremarkable except as noted in HPI and below Exam Const: General: comfortable and no acute distress HENMT: Face/Nose/Sinus: Normal nares present Eyes: General: appearance normal, both eyes and all related structures Neck: Neck: supple Resp: Auscultation: clear to auscultation bilaterally Cardio: Rate: regular rate Rhythm: regular rhythm GI: Inspection: non-distended GI Palp: Yes Soft to palpation and Yes Tenderness to palpation present (GI) (mild ttp lower abdomen, no rebound) Skin: General skin exam: normal color Neuro: Speech: normal speech Motor exam (neuro): 5/5 motor strength present throughout Extrem: General: normal to inspection Psych: Mental Status: mental status grossly normal Objective Data Vital Signs Vital Signs: Vital Signs - 24 hr 02/03/25 19:27 02/03/25 21:38 02/04/25 06:00 Temperature 97 F L 97.3 F L Pulse Rate 91 69 61 Respiratory Rate 20 24 H 20 Blood Pressure 135/81 108/74 Pulse Oximetry 96 99 99 Oxygen Delivery Room Air Fraction of Inspired Oxygen 21 06/02/25 14:00 Temperature 97.2 F L Pulse Rate 64 Respiratory Rate 20 Blood Pressure 147/84 H Pulse Oximetry 100 Oxygen Delivery Fraction of Inspired Oxygen Intake/Output Intake/Output: Intake & Output 02/01/25 02/02/25 02/03/25 02/04/25 23:59 23:59 23:59 23:59 Intake Total 2450 400 1880 Balance 2450 400 1880 Meds/Results Medications: Active Medications Generic Name Dose Route Start Last Admin Trade Name Freq PRN Reason Stop Dose Admin Acetaminophen 650 mg 02/02/25 22:07 02/03/25 21:16 Acetaminophen 325 Mg Tablet PO 650 mg Q6H PRN Administration Mild Pain (1-3) or Fever Enoxaparin Sodium 40 mg 02/03/25 09:00 02/04/25 09:00 Enoxaparin 40 Mg/0.4 Ml Syringe SUB-Q Not Given DAILY [facility] Hydromorphone HCl 0.5 mg 02/02/25 12:38 02/03/25 21:13 Hydromorphone Hcl Inj (*Crx) 2 Mg/Ml Vial IV PUSH 0.5 mg Q4H PRN Administration Pain Rated 7-10 Lactated Ringer's 1,000 mls @ 75 mls/hr 02/04/25 13:25 Lr - Lactated Ringers Iv IV CONT .[id number] [facility] Ondansetron HCl 4 mg 02/02/25 17:58 02/03/25 05:33 Ondansetron Inj 4 Mg/2 Ml Vial IV PUSH 4 mg Q6H PRN Administration Nausea And Vomiting Radiology Results: ITS Impressions Chest X-Ray 02/02/25 10:32 IMPRESSION: 1: NO ACUTE CARDIOPULMONARY DISEASE. Abdomen/Pelvis CT 02/02/25 10:37 IMPRESSION: 1. Thickened ileum, suspicious for inflammatory bowel disease. Consider Crohn's disease and infection. ADDENDUM: 02/02/25 1154 The appendix is normal caliber. No secondary findings to suggest appendicitis. Labs Labs: Laboratory Results - last 24 hr 02/04/25 05:47 WBC 4.0 L RBC 4.15 L Hgb 12.8 Hct 38.7 MCV 93.3 MCH 30.8 MCHC 33.1 RDW 12.0 Plt Count 211 MPV 9.8 Immature Gran % (Auto) 0.3 Neut % (Auto) 50.6 Lymph % (Auto) 35.0 [place] % (Auto) 11.8 H Eos % (Auto) 1.8 Baso % (Auto) 0.5 Lymph # (Auto) 1.39 [place] # (Auto) 0.5 Eos # (Auto) 0.1 Baso # (Auto) 0.0 Abs Immat Gran (auto) 0.01 Absolute Neuts (auto) 2.0 Absolute Nucleated RBC 0.000 Nucleated RBC % 0.0 Sodium 138 Potassium 3.6 Chloride 102 Carbon Dioxide 29 Anion Gap 7 BUN 7 Creatinine 0.63 L Estim Creat Clear Calc 86 Estimated GFR > 60 Glucose 80 Calcium 9.1 Magnesium 2.1 Total Bilirubin 0.7 AST 74 H ALT 88 H Alkaline Phosphatase 94 Total Protein 7.0 Albumin 4.1
[2025-02-04 21:19] VITALS: BP 152/78; PULSE 69; RESP 14; TEMP 36.6; O2SAT 100
[2025-02-04 22:52] VITALS: O2SAT 97
[2025-02-05 05:43] VITALS: BP 117/70; PULSE 54; RESP 14; TEMP 36.3; O2SAT 99
[2025-02-05 06:45] LABS: Basophils Percent Auto 0.5 % (0.2-1.2); Eosinophils Absolute Auto 0.1 K/mm3 (0-0.3); Eosinophils Percent Auto 2.8 % (0-4.4); Hematocrit 37.9 % (37.0-47.0); Hemoglobin 12.7 g/dL (12.0-15.0); Immature Granulocyte Absolute 0.02 K/mm3 (0.00-0.031); Immature Granulocyte Percent A 0.5 % (0-0.5); Lymphocytes Absolute Auto 1.37 K/mm3 (0.9-3.2); Mean Corpuscular HGB Conc 33.5 g/dl (32-36); Mean Corpuscular Volume 92.4 fl (80-100); Mean Platelet Volume 9.8 fl (7.4-10.4); Monocytes Absolute Auto 0.5 K/mm3 (0.1-0.6); Monocytes Percent Auto 11.7 % (2.6-8.5); Neutrophils Absolute Auto 2.3 K/mm3 (1.3-6.7); Neutrophils Percent Auto 52.5 % (45.5-73.1); Platelet Count Result 232 k/mm3 (150-375); White Blood Count 4.3 K/mm3 (4.5-10.0)
[2025-02-05 06:51] LABS: Alanine Aminotransferase 64 U/L (6-35); Alkaline Phosphatase 77 U/L (38-126); Anion Gap 6 mmol/L (4-12); Aspartate Amino Transferase 45 U/L (14-36); Bilirubin,Total 0.7 mg/dL (0.2-1.3); Blood Urea Nitrogen 8 mg/dL (7-17); Calcium 9.1 mg/dL (8.4-10.2); Carbon Dioxide 31 mmol/L (22-30); Chloride 104 mmol/L (98-107); Estimated CRCL calculation 90 ml/min; Estimated Glomerular Filt Rate > 60; Glucose 87 mg/dL (65-110); Magnesium 2.2 mg/dL (1.6-2.3); Sodium 141 mmol/L (137-145)
--- NOTE | 2025-02-05 10:58 | PM.DS ---
DS: Admitting Diagnosis Discharge Date 02/05/25 Admitting Diagnosis Abdominal pain, nausea, diarrhea. DS: Discharge Diagnosis Discharge Diagnosis (1) Enteritis: Code(s): K52.9 - Noninfective gastroenteritis and colitis, unspecified Status: Acute (2) Dehydration: Code(s): E86.0 - Dehydration Status: Acute (3) Elevated LFTs: Code(s): R79.89 - Other specified abnormal findings of blood chemistry Status: Acute (4) Essential hypertension: Code(s): I10 - Essential (primary) hypertension Status: Acute Plan Enteritis CT AP showed enteritis still having diarrhea Stop antibiotics, since GI ruled out Crohn's GI eval noted Stool culture ordered by night provider monitor Hypertension titrate home meds with clinical course DVT prophylaxis on Sq Lovenox DS: Summary Hospital Course Hospital Course: 55 y/o female presented to the ER with abdominal pain, nausea, diarrhea. CT scan was suspicious for thickened ileum, suspicious for inflammatory bowel disease. Consider Crohn's disease and infection. patient was seen by GI and does not suspect patient has Crohn's disease as patient symptoms have resolved, patient will follow up as an outpatient with GI, patient is clinically stable will discharge today. Time Spent with Patient Time attestation: Total time spent providing and/or coordinating discharge services: Exam Narrative: Patient is comfortable, NAD HEENT: eyes are clear and none icteric LUNGS:CTA HEART: RR S1S2 ABD: BS+, Soft and nontender Lower extremities: no edema SKIN: nonjaundiced Neuro: grossly intact. DS: Data Data Completed and Pending Labs on day of discharge: Labs from last 24 hours 02/05/25 05:27 WBC 4.3 L RBC 4.10 L Hgb 12.7 Hct 37.9 MCV 92.4 MCH 31.0 MCHC 33.5 RDW 12.0 Plt Count 232 MPV 9.8 Immature Gran % (Auto) 0.5 Neut % (Auto) 52.5 Lymph % (Auto) 32.0 [place] % (Auto) 11.7 H Eos % (Auto) 2.8 Baso % (Auto) 0.5 Lymph # (Auto) 1.37 [place] # (Auto) 0.5 Eos # (Auto) 0.1 Baso # (Auto) 0.0 Abs Immat Gran (auto) 0.02 Absolute Neuts (auto) 2.3 Absolute Nucleated RBC 0.000 Nucleated RBC % 0.0 Sodium 141 Potassium 4.0 Chloride 104 Carbon Dioxide 31 H Anion Gap 6 BUN 8 Creatinine 0.60 L Estim Creat Clear Calc 90 Estimated GFR > 60 Glucose 87 Calcium 9.1 Magnesium 2.2 Total Bilirubin 0.7 AST 45 H ALT 64 H Alkaline Phosphatase 77 Total Protein 7.0 Albumin 4.0 Discharge Plan Discharge Attending physician on discharge: Kostas Fernandez Consulting providers: Roberto Stevens; Mitzi Ayala Terry J.; Renzo Cardona Discharging Clinician: Cintia Galvan Patient Disposition: Home Activity: as tolerated Diet: heart healthy Discharge Instructions: patient to follow up with her primary care provider as soon as possible and patient is instructed if any symptoms worsen to go to nearest ER. Patient Instructions: Enteritis (DC) Patient Language: American Follow-up/Referrals: Ismael,Trey Mkceon MD [Primary Care Provider] - Roberto Stevens MD [Physician] - Discharge Medications: New ondansetron 4 mg tablet,disintegrating 4 mg PO Q8H PRN (Reason: nausea and vomiting) Qty: 20 0RF Date of admission: 02/04/25 11:22 Primary Care Provider: Trey Napier Admitting Provider: Kostas Fernandez Attending physician on admission: Cintia Galvan Condition: Stable
== END 2025-02-05 12:00 | disposition home or self-care (01) | DRG 392 ==
LOC: ANHED 12:20 → ANH3MEDSUR 13:27
PROVIDERS: Emergency Medicine; Physician Assistant; Admitting Provider Internal Medicine; Emergency Provider Emergency Medicine; PCP Internal Medicine; Visit Provider Family Medicine
DX: A09 Infectious gastroenteritis and colitis, unspecified (principal); E86.0 Dehydration; I10 Essential (primary) hypertension; K76.0 Fatty (change of) liver, not elsewhere classified; Z90.49 Acquired absence of other specified parts of digestive tract; Z90.710 Acquired absence of both cervix and uterus
CPT/HCPCS: 36415; 71045; 74177; 80053; 81001; 83605; 83690; 83735; 85025; 85027; 87045; 87086; 87427; 87449; 93005; 96361; 96366; 96367; 96374; 96375; 96376; 99285; A9270; G0378; J0696; J1171; J1836; J1885; J2405; J7030; J7120; Q9967

== ENCOUNTER 2025-04-19 07:15 | Day surgery (SDC) | payer OTHER, SELFPAY ==
--- OUTSIDE RECORDS SUMMARY | 2025-04-19 07:18 | XMS_ITS | Continuity of Care Document ---
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 It does not include entries that were removed or entered in error. Problem Status Onset Date Problem Type Date of Resolution Comments Source Diagnosis: ICD-10-CM Z63.6 Dependent relative needing care at home Active Diagnosis [facility] Encounters Combined list of: 1) Encounters from Department of Veterans Affairs facilities going backup to the last 18 months, not all VA inpatient encounters are included; 2) Encounters from the Department of [facility] facilities going backup to 280 months. Location Location Details Encounter Type Encounter Number Reason For Visit Attending Provider ADM Date DC Date Status Disposition Source [facility] PT EDUCATION NOC INDIVID [id number] Diagnos is: ICD-10- CM Z63.6 Depende nt relativ e needing care at home NAY SALDAÑA L 11/09 [facility] KAYLEE N [facility] Outpatient Encounter [id number] MAHENDRA AYALA L 11/30 [facility] DIVTERESITA N
--- OUTSIDE RECORDS SUMMARY | 2025-04-19 07:18 | XMS_ITS | Clinical Summary ---
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 Machine Operator Name Role Phone Hao Daly MD Primary Care Provider + Allergies Active Allergy Reactions Criticality Noted Date Comments Hydrocodone-Acetaminophen Rash Medium 04/25/2019 Penicillins Anaphylaxis High 02/01/2019 Medications dilTIAZem CD/XR/XT (CARDIZEM CD,DILACOR XR) 120 mg 24 hr capsule Take 1 capsule (120 mg total) by mouth daily 90 capsule 6 5 Active nitroglycerin (NITROSTAT) 0.[address] 1 tablet (0.4 mg total) under the tongue every 5 (five) minutes as needed for chest pain 90 tablet 6 5 Active dilTIAZem CD/XR/XT (CARDIZEM CD,DILACOR XR) 120 mg 24 hr capsule Take 1 capsule (120 mg total) by mouth daily 30 capsule 11 9 04/03/20 25 Discontinued nitroglycerin (NITROSTAT) 0.[address] 1 tablet (0.4 mg total) under the tongue every 5 (five) minutes as needed for chest pain 25 tablet 11 0 04/03/20 25 Discontinued Active Problems No known active problems Encounters Date Type Department Care Team Description 04/03/2025 12:15 PM CDT Office Visit [facility] [address] [facility] [address] [place] [address] Krystian Brito MD Atypical chest pain (Primary Dx); Lipid screening 04/01/2025 Telephone [facility] [address] [place] [address] Krystian Brito MD from Last 3 Months Surgical History Surgery Date Site/Laterality Comments HYSTERECTOMY CHOLECYSTECTOMY Medical History Medical History Date Comments Hypertension Gallstones Social History Tobacco Use Types Packs/Day Years Used Date Smoking Tobacco: Never Smokeless Tobacco: Never Tobacco Cessation:Counseling Given: Not Answered Alcohol Use Standard Drinks/Week Comments Never 0 (1 standard drink = 0.6 oz pur e alcohol) AUDIT-C Answer Date Recorded Frequency of Alcohol Consumption Never 04/25/2019 Average Number of Drinks Not on file 019 Frequency of Binge Drinking Not on file 04/06 Comments Unknown Sex and Gender Information Value Date Recorded Sex Assigned at Not on file 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 Gender Identity Not on file Sexual Orientation Not on file Obstetrics History Last Filed Vital Signs Vital Sign Reading Time Taken Comments Blood Pressure 130/80 04/03/2025 12:17 PM CDT Pulse 73 04/03/2025 12:17 PM CDT Temperature - - Respiratory Rate - - Oxygen Saturation 97% 04/03/2025 12:17 PM CDT Inhaled Oxygen Concentration - - Weight 82.1 kg (181 lb) 04/03/2025 12:17 PM CDT Height 165.1 cm (5' 5) 04/03/2025 12:17 PM CDT Body Mass Index 30.12 04/03/2025 12:17 PM CDT Plan of Treatment Health Maintenance Due Date Last Done Comments Breast Cancer Screening-Mammogram 1970 Colon Cancer Screening-Colonoscopy 1970 Depression Screening 1970 Hepatitis C Screening 1970 Hepatitis B Screening 01/11/1988 Regular Well Visit/Exam 18-64 01/11/1988 Zoster Vaccine (1 of 2) 01/11/2020 Influenza Vaccine (#1) 2025 DTaP/Tdap/Td Vaccine (2 - Td or Tdap) 08/06/2026 08/06/2016 Pneumococcal vaccine <65 Aged Out No longer eligible based on patient's age to complete this topic Procedures Procedure Name Priority Date/Time Associated Diagnosis Comments ECG 12-LEAD Routine 04/03/2025 12:26 PM CDT Atypical chest pain POCT LIPID PANEL Routine 04/03/2025 12:2 6 PM CDT Lipid screening from Last 3 Months Results * (ABNORMAL) POCT lipid panel (04/03/2025 12:26 PM CDT) Cholesterol, POC 216 <200 MG/DL HDL, POC 79 >=40 mg/dL Triglycerides, POC 163(A) <=149 mg/dL LDL Cholesterol POC 104 <=129 mg/dL Chol/HDL Ratio, POC 1.3 NONE Non-HDL Cholesterol, POC 137 NONE mg/dL Cholesterol Total, POC 216(A) 30 - 199 mg/dL Capillary blood 04/03/2025 1 2:26 PM CDT us Krystian Brito MD POINT OF CARE TEST ORDERABLES Fi nal Result * ECG 12 lead (04/03/2025 12:26 PM CDT) 04/03/2025 12:2 6 PM CDT us Krystian Brito MD ECG ORDERABLES Edited Result - Final from Last 3 [place] [id number] Care Teams Bobbin Cleaning Machine Operator Relationship Specialty Start Date End Date Hao Daly MD [address] [place] [address] PCP - General Internal Medicine 04/03/25
[2025-04-19 11:07] VITALS: BP 141/102; PULSE 87; RESP 19; TEMP 36.6; O2SAT 98
[2025-04-19] MEDS: LACTATED RINGERS 1,000 ML 150 ML IV CONT (11:16)
--- NOTE | 2025-04-19 12:14 | WPDANESEPPF ---
Anes - Initial Pre Proc Eval Procedure: Operation Date: 04/19/25 14:00 Proposed Procedures p Colonoscopy - Roberto Stevens MD Date/Time: 04/19/25 12:14 Surgeon: Roberto Stevens MD Pre Op Diagnosis: Noninfective gastroenteritis and colitis, unspecif Patient Data Age: 55 Gender: F Height: 1.63 m Weight: 79.5 kg Last Vital Signs Temp 97.8 F 04/19/25 11:07 Pulse 87 04/19/25 11:07 Resp 19 04/19/25 11:07 BP 141/102 H 04/19/25 11:07 Pulse Ox 98 04/19/25 11:07 O2 Del Method Room Air 04/19/25 11:07 Allergies Allergy/AdvReac Type Severity Reaction Status Date / Time Penicillins Allergy Severe THROAT Verified 04/19/25 11:06 SWELLING, RASH hydrocodone Allergy Unknown SEVERE Verified 04/19/25 11:06 ITCHING Home Medications ?Medication ?Instructions ?Recorded ?Confirmed ?Type ondansetron 4 mg disintegrating 4 mg PO Q8H PRN nausea and 02/05/25 04/04/25 Rx tablet vomiting #20 tabs Patient hx anesthesia problems: none Family hx anesthesia problems: none Results Review: All pre-operative results and documents have been reviewed as part of the pre-operative evaluation. [facility] Past Medical History Medical History Fatty liver Nausea Essential hypertension no longer on antihypertensives after weight loss Surgical History Surgical History History of hysterectomy History of laparoscopic cholecystectomy Social History Social History Social History: Surrogate medical decision maker: Jimmy Barriga, spouse. Code status: Full code. Smoking status: Never smoker Second hand tobacco smoke exposure: No Alcohol intake: never Substance use: never Substance use type: does not use Do You Feel Safe in your Home?: Yes Lack of Transportation: No Lack of Food: Never True Current Housing: I Have Housing Concerned About Future Housing: No Difficulty Paying Gas/Electric Bills: No Difficulty Paying for Meds: No Currently Unemployed: No Education: High School Diploma/GED Difficulty w/ Childcare or Family Care: No Living arrangements: with family Spiritual care concerns: No Anes - Eval Final PreProcedure Day of Procedure 04/19/25 12:14 Patient weight: obese Lungs: normal air movement Airway: special considerations Neurological: alert and oriented Last oral intake: >/= 8 hours ASA classification: II Emergent: no Anesthetic plan: proceed Anesthesia type and monitoring: general GIVS and standard monitoring Results Review: All pre-operative results and documents have been reviewed as part of the pre-operative evaluation. BMI 30. Informed Consent: The patient's anesthetic plan and its attendant risks and benefits were discussed with the patient/family/POA. Questions were solicited and answers provided to the satisfaction of the patient/family/POA.
--- NOTE | 2025-04-19 12:17 | PM.HPGS ---
History of Present Illness History of Present Illness Consent: Risks, benefits, and alternatives have been discussed and questions answered. Patient agrees to proceed with procedure. Chief complaint: Noninfective gastroenteritis and colitis, unspecif Narrative: Gayle Barriga is a 55 year old female here for first colonoscopy, recent hospitalization with colitis Review of Systems Review of Systems: All systems reviewed & are unremarkable except as noted in HPI and below PMFSH Past Medical History Medical History Fatty liver Nausea Essential hypertension no longer on antihypertensives after weight loss Surgical History Surgical History History of hysterectomy History of laparoscopic cholecystectomy Social History Social History Social History: Surrogate medical decision maker: Jimmy Barriga, spouse. Code status: Full code. Smoking status: Never smoker Second hand tobacco smoke exposure: No Alcohol intake: never Substance use: never Substance use type: does not use Do You Feel Safe in your Home?: Yes Lack of Transportation: No Lack of Food: Never True Current Housing: I Have Housing Concerned About Future Housing: No Difficulty Paying Gas/Electric Bills: No Difficulty Paying for Meds: No Currently Unemployed: No Education: High School Diploma/GED Difficulty w/ Childcare or Family Care: No Living arrangements: with family Spiritual care concerns: No Meds Home Medications and Allergies Home Medications ?Medication ?Instructions ?Recorded ?Confirmed ?Type ondansetron 4 mg disintegrating 4 mg PO Q8H PRN nausea and 02/05/25 04/04/25 Rx tablet vomiting #20 tabs Allergies Allergy/AdvReac Type Severity Reaction Status Date / Time Penicillins Allergy Severe THROAT Verified 04/19/25 11:06 SWELLING, RASH hydrocodone Allergy Unknown SEVERE Verified 04/19/25 11:06 ITCHING Vital Signs Vital Signs - 24 hr 04/19/25 11:07 Temperature 97.8 F Pulse Rate 87 Respiratory Rate 19 Blood Pressure 141/102 H Pulse Oximetry 98 Oxygen Delivery Room Air Exam Const: General: comfortable and no acute distress HENMT: Face/Nose/Sinus: Normal nares present Eyes: General: appearance normal, both eyes and all related structures Neck: Neck: no JVD Resp: Auscultation: clear to auscultation bilaterally Cardio: Rate: regular rate Rhythm: regular rhythm GI: Inspection: non-distended GI Palp: Yes Soft to palpation Skin: General skin exam: normal color Neuro: General: gait normal Speech: normal speech Extrem: General: normal to inspection Psych: Mental Status: mental status grossly normal Assessment and Plan Assessment and plan (1) Colitis: Code(s): K52.9 - Noninfective gastroenteritis and colitis, unspecified Status: Acute Assessment and Plan: colonoscopy with bx
--- NOTE | 2025-04-19 12:33 | S_PTH ---
PATIENT: Gayle Barriga LOC: [facility]#:[id number] AGE/SX: 55/F ROOM: RE04/19/[address]: Roberto Stevens MD : 1970 BED: DIS: 04/19/2025 SPEC #: [id number] RECD: 04/19/25 13:09 STATUS: ASTER REoJsue #: [id number] CINDY: 04/19/25 12:[address]: Roberto Stevens DEPT: [facility] Surgical RECD BY: Maxi Quan ENTERED: 04/19/25 13:09 SP TYPE: Surgical OTHR DR: Hao DalyMD Tissues: A - Colon Biopsy Procedures: Hematoxylin and Eosin Stain Gross and Microscopic Level 4
[2025-04-19 12:34] VITALS: BP 119/79; PULSE 75; RESP 16; O2SAT 95
[2025-04-19 12:44] VITALS: BP 130/89; PULSE 61; RESP 15; O2SAT 99
[2025-04-19 12:54] VITALS: BP 132/89; PULSE 62; RESP 17; O2SAT 100
== END 2025-04-19 13:08 | disposition home or self-care (01) ==
PROVIDERS: PCP Internal Medicine; Visit Provider Internal Medicine Gastroenterology
PROC: 0DJD8ZZ Inspection of Lower Intestinal Tract, Via Natural or Artificial Opening Endoscopic (ICD-10-PCS; CPT 45378; principal; 2025-04-19 14:00)
DX: Z09 Encounter for follow-up examination after completed treatment for conditions other than malignant neoplasm (principal); K64.8 Other hemorrhoids; I10 Essential (primary) hypertension; E66.9 Obesity, unspecified; Z68.30 Body mass index [BMI] 30.0-30.9, adult; Z98.890 Other specified postprocedural states; Z90.49 Acquired absence of other specified parts of digestive tract
CPT/HCPCS: 45380; 88305; J2704; J7120